=== PATIENT | male | born 1940 | race Asian ===

== ENCOUNTER 2016-11-24 12:16 | Emergency (ER) | payer MEDICARE ==
[~2016-11-24] VITALS: Ht 170.2 cm; Wt 59.1 kg
[~2016-11-24 12:16] MED LIST: BETAPACE 80MG80 MG PO; CARAFATE 1GM1 G PO; FLOMAX 0.40.4 MG/CAP PO; LEVAQUIN 5500 MG/TA1 PO; PREVACID 15MG15 M1 PO; TOPROL XL 50MG50 MG PO; ZANTAC 150150 MG PO; ZITHROMAX Z PA250 MG PO
[2016-11-24 12:17] VITALS: TEMP 97.8
[2016-11-24 13:14] LABS: BASO % 0.5 % (0.0-2.0); EOS # 0.3 (0.0-0.7); EOS % 3.9 % (0-4.0); GRAN # 6.3 (1.4-6.5); GRAN % 73.2 % (42.2-75.2); HEMATOCRIT 37.9 % (42.0-52.0); HEMOGLOBIN 12.4 g/dl (13.5-18.0); LYMPH # 1.3 (1.2-3.4); LYMPH % 15.2 % (20.0-51.0); MEAN CELL VOLUME 91 fl (80.0-100.0); MEAN CORPUSCULAR HEMOGLOBIN 30 pg (27.0-31.0); MEAN CORPUSCULAR HGB CONC 33 g/dl (33.0-37.0); MEAN PLATELET VOLUME 9.5 fl (7.4-10.4); MONO # 0.6 (0.1-0.6); MONO % 6.8 % (1.7-9.3); PLATELET COUNT 266 K/mm3 (130-400); RED BLOOD COUNT 4.17 M/mm3 (4.20-5.60); REDCELL DISTRIBUTION WIDTH-CV 12.5 % (11.5-14.5); WHITE BLOOD COUNT 8.6 K/mm3 (4.8-10.8)
[2016-11-24 13:19] LABS: ADJUSTED CALCIUM 9.3 mg/dL (8.4-10.2); BILIRUBIN,TOTAL 1.2 mg/dL (0.0-1.0); CALCIUM 9.3 mg/dL (8.4-10.2); CREATININE, serum 1.1 mg/dL (0.66-1.25); POTASSIUM 3.9 mmol/L (3.4-5.0); TOTAL PROTEIN 8.1 gm/dL (6.4-8.2)
[2016-11-24] MEDS ORDERED: AMOXICILLIN 8751 TAB PO ×2 (15:20→15:29)
[2016-11-24 15:43] VITALS: BP 119/80; PULSE 69
== END 2016-11-24 15:45 | disposition home or self-care (01) ==
LOC: COL.ER 12:16
PROVIDERS: Emergency Medicine
DX: J18.9 Pneumonia, unspecified organism (principal); I10 Essential (primary) hypertension; Z87.891 Personal history of nicotine dependence
CPT/HCPCS: Q9967

== ENCOUNTER 2016-12-06 08:30 | Emergency (ER) | payer MEDICARE ==
[~2016-12-06] VITALS: Ht 170.2 cm; Wt 56.8 kg
[~2016-12-06 08:30] MED LIST changes: +AMOXICILLIN 8751 TAB PO
[2016-12-06 08:34] VITALS: TEMP 97.6
[2016-12-06 09:15] LABS: BASO % 0.4 % (0.0-2.0); EOS # 0.3 (0.0-0.7); EOS % 2.8 % (0-4.0); GRAN # 6.7 (1.4-6.5); GRAN % 73.4 % (42.2-75.2); HEMATOCRIT 37.1 % (42.0-52.0); HEMOGLOBIN 12.1 g/dl (13.5-18.0); LYMPH # 1.6 (1.2-3.4); MEAN CELL VOLUME 91 fl (80.0-100.0); MEAN CORPUSCULAR HEMOGLOBIN 30 pg (27.0-31.0); MEAN CORPUSCULAR HGB CONC 33 g/dl (33.0-37.0); MEAN PLATELET VOLUME 9.5 fl (7.4-10.4); MONO # 0.6 (0.1-0.6); MONO % 6.2 % (1.7-9.3); PLATELET COUNT 291 K/mm3 (130-400); RED BLOOD COUNT 4.06 M/mm3 (4.20-5.60); WHITE BLOOD COUNT 9.1 K/mm3 (4.8-10.8)
[2016-12-06 09:24] LABS: INR 1.2 (0.8-3.0); PROTHROMBIN TIME 13.1 SECONDS (9.7-12.8)
[2016-12-06 09:26] LABS: PARTIAL THROMBOPLASTIN TIME 39.1 SECONDS (26.0-37.0)
[2016-12-06 09:31] LABS: INFLUENZA B NEGATIVE
[2016-12-06 09:40] LABS: ADJUSTED CALCIUM 9.2 mg/dL (8.4-10.2); ALBUMIN 3.8 gm/dL (3.5-5.0); BILIRUBIN,TOTAL 1.1 mg/dL (0.0-1.0); CREATININE, serum 1.02 mg/dL (0.66-1.25); POTASSIUM 3.8 mmol/L (3.4-5.0); TOTAL PROTEIN 7.8 gm/dL (6.4-8.2)
[2016-12-06 09:41] LABS: ERYTHROCYTE SEDIMENTATION RATE 46 mm/hr (0-30)
[2016-12-06] MEDS ORDERED: LEVAQUIN 5500 MG/TA1 PO (11:05)
[2016-12-06 11:59] VITALS: BP 121/82; PULSE 69
== END 2016-12-06 12:00 | disposition home or self-care (01) ==
LOC: COL.ER 08:30
PROVIDERS: Physician Assistant
DX: J18.9 Pneumonia, unspecified organism (principal); I10 Essential (primary) hypertension; Z87.891 Personal history of nicotine dependence; K21.9 Gastro-esophageal reflux disease without esophagitis
CPT/HCPCS: J1956; J7040; Q9967

== ENCOUNTER 2016-12-10 12:19 | Emergency (ER) | payer MEDICARE ==
[~2016-12-10] VITALS: Ht 170.2 cm; Wt 59.1 kg
[2016-12-10 12:36] VITALS: TEMP 98.8
[2016-12-10 13:24] LABS: BASO % 0.5 % (0.0-2.0); EOS # 0.2 (0.0-0.7); EOS % 2.9 % (0-4.0); GRAN # 5.5 (1.4-6.5); GRAN % 75.3 % (42.2-75.2); LYMPH % 13.5 % (20.0-51.0); MEAN CELL VOLUME 91 fl (80.0-100.0); MEAN CORPUSCULAR HEMOGLOBIN 30 pg (27.0-31.0); MEAN CORPUSCULAR HGB CONC 33 g/dl (33.0-37.0); MEAN PLATELET VOLUME 9.8 fl (7.4-10.4); MONO # 0.6 (0.1-0.6); MONO % 7.5 % (1.7-9.3); PLATELET COUNT 275 K/mm3 (130-400); RED BLOOD COUNT 3.98 M/mm3 (4.20-5.60); WHITE BLOOD COUNT 7.3 K/mm3 (4.8-10.8)
[2016-12-10 13:26] LABS: HEMATOCRIT 36.2 % (42.0-52.0)
[2016-12-10 13:33] LABS: ADJUSTED CALCIUM 9.4 mg/dL (8.4-10.2); ALANINE AMINOTRANSFERASE 26 U/L (21-72); ALBUMIN 3.6 gm/dL (3.5-5.0); ALKALINE PHOSPHATASE 109 U/L (50-136); ANION GAP 10 mmol/L (7-16); BILIRUBIN,TOTAL 0.9 mg/dL (0.0-1.0); BLOOD UREA NITROGEN 15 mg/dL (9-20); CALCIUM 9.1 mg/dL (8.4-10.2); CARBON DIOXIDE 31 mmol/L (22-30); CHLORIDE 99 mmol/L (98-107); CREATININE, serum 1.23 mg/dL (0.66-1.25); GLUCOSE 120 mg/dL (74-106); POTASSIUM 3.8 mmol/L (3.4-5.0); SODIUM 140 mmol/L (137-145); TOTAL PROTEIN 7.6 gm/dL (6.4-8.2)
[2016-12-10 13:47] LABS: TROPONIN-I < 0.012 ng/mL (0.000-0.034)
[2016-12-10] MEDS ORDERED: PREDNISONE20 MG PO (15:48)
[2016-12-10 15:54] VITALS: BP 127/82; PULSE 68
== END 2016-12-10 15:53 | disposition home or self-care (01) ==
LOC: COL.ER 12:19
PROVIDERS: Emergency Medicine
DX: J18.9 Pneumonia, unspecified organism (principal); I10 Essential (primary) hypertension; Z87.891 Personal history of nicotine dependence; K21.9 Gastro-esophageal reflux disease without esophagitis
CPT/HCPCS: J1885; J1956; J7512

== ENCOUNTER 2016-12-13 08:28 | Day surgery (SDC) | payer MEDICARE ==
[~2016-12-13] VITALS: Ht 170.2 cm; Wt 60.3 kg
[~2016-12-13 08:28] MED LIST changes: +PREDNISONE20 MG PO
[2016-12-13] MEDS ORDERED: VENTOLIN0.09 MG IH (09:22)
[2016-12-13] MEDS ORDERED: LIPITOR 40MG TA40 MG PO (09:23)
[2016-12-13] MEDS ORDERED: LIBRAX CAPSULE1 CAP PO (09:24)
[2016-12-13] MEDS ORDERED: DELSYM30 MG/5 ML PO (09:24)
[2016-12-13] MEDS ORDERED: PROBIOTIC FORMU1 CAP PO (09:25)
[2016-12-13] MEDS ORDERED: MUCINEX 60600 MG/TA1 PO (09:25)
[2016-12-13 09:27] VITALS: BP 144/74; PULSE 55; TEMP 97.2
[2016-12-13] MEDS ORDERED: BETAPACE 80MG80 MG PO (09:27)
[2016-12-13 10:45] VITALS: BP 126/73; PULSE 66; TEMP 97.1
[2016-12-13 11:00] VITALS: BP 137/67; PULSE 54
[2016-12-13 11:15] VITALS: BP 155/73; PULSE 63
[2016-12-13 11:30] VITALS: BP 133/64; PULSE 58
[2016-12-13 15:14] VITALS: BP 127/75; PULSE 67
== END 2016-12-13 12:00 | disposition home or self-care (01) ==
LOC: SDCO 08:28
DX: R06.02 Shortness of breath (principal); R07.9 Chest pain, unspecified
CPT/HCPCS: J7030

== ENCOUNTER 2016-12-16 11:44 | Emergency (ER) | payer MEDICARE ==
[~2016-12-16] VITALS: Ht 170.2 cm; Wt 59.1 kg
[~2016-12-16 11:44] MED LIST changes: +DELSYM30 MG/5 ML PO; +LIBRAX CAPSULE1 CAP PO; +LIPITOR 40MG TA40 MG PO; +MUCINEX 60600 MG/TA1 PO; +PROBIOTIC FORMU1 CAP PO; +VENTOLIN0.09 MG IH
[2016-12-16 11:54] VITALS: TEMP 97.3
[2016-12-16 12:48] LABS: BASO % 0.3 % (0.0-2.0); EOS # 0.1 (0.0-0.7); EOS % 1.4 % (0-4.0); GRAN # 5.6 (1.4-6.5); GRAN % 77.1 % (42.2-75.2); HEMATOCRIT 38.8 % (42.0-52.0); HEMOGLOBIN 12.9 g/dl (13.5-18.0); LYMPH # 1.2 (1.2-3.4); LYMPH % 16.4 % (20.0-51.0); MEAN CELL VOLUME 90 fl (80.0-100.0); MEAN CORPUSCULAR HEMOGLOBIN 30 pg (27.0-31.0); MEAN CORPUSCULAR HGB CONC 33 g/dl (33.0-37.0); MEAN PLATELET VOLUME 9.6 fl (7.4-10.4); MONO # 0.3 (0.1-0.6); MONO % 4.5 % (1.7-9.3); PLATELET COUNT 274 K/mm3 (130-400); RED BLOOD COUNT 4.31 M/mm3 (4.20-5.60); REDCELL DISTRIBUTION WIDTH-CV 13.3 % (11.5-14.5); WHITE BLOOD COUNT 7.3 K/mm3 (4.8-10.8)
[2016-12-16 12:49] LABS: ADJUSTED CALCIUM 10.1 mg/dL (8.4-10.2); ALBUMIN 3.6 gm/dL (3.5-5.0); BILIRUBIN,TOTAL 1.1 mg/dL (0.0-1.0); CALCIUM 9.8 mg/dL (8.4-10.2); CREATININE, serum 0.98 mg/dL (0.66-1.25); POTASSIUM 3.6 mmol/L (3.4-5.0); TOTAL PROTEIN 7.6 gm/dL (6.4-8.2)
[2016-12-16 13:04] LABS: PH 7 (5-8); SQUAMOUS EPITHELIAL None Seen /hpf; URINE APPEARANCE Clear; URINE BACTERIA None Seen /hpf; URINE BILIRUBIN Negative (NEGATIVE); URINE BLOOD Negative (NEGATIVE); URINE COLOR Yellow; URINE GLUCOSE Negative (NEGATIVE); URINE KETONE Trace (NEGATIVE); URINE RBC 0-2 /hpf; URINE UROBILINOGEN Negative (NEGATIVE); URINE WBC 0-2 /hpf
[2016-12-16] MEDS ORDERED: PREDNISONE10 MG PO (14:21)
[2016-12-16] MEDS ORDERED: ZOFRAN ODT4 MG PO (14:23)
[2016-12-16] MEDS ORDERED: PREVACID 30MG30 M1 PO (14:23)
[2016-12-16] MEDS ORDERED: CARAFATE 1GM1 G PO (14:23)
[2016-12-16 15:11] VITALS: BP 144/77; PULSE 65
== END 2016-12-16 14:59 | disposition home or self-care (01) ==
LOC: COL.ER 11:44
PROVIDERS: Emergency Medicine
DX: K29.70 Gastritis, unspecified, without bleeding (principal); K21.9 Gastro-esophageal reflux disease without esophagitis
CPT/HCPCS: J2405; J7030; Q9967

== ENCOUNTER 2017-01-28 21:30 | Emergency (ER) | payer MEDICARE ==
[~2017-01-28] VITALS: Ht 170.2 cm; Wt 57.7 kg
[~2017-01-28 21:30] MED LIST changes: +PREDNISONE10 MG PO; +PREVACID 30MG30 M1 PO; +ZOFRAN ODT4 MG PO
[2017-01-28 21:33] VITALS: TEMP 99.4
[2017-01-28 22:04] LABS: BASO % 0.4 % (0.0-2.0); EOS # 0.1 (0.0-0.7); EOS % 0.6 % (0-4.0); GRAN % 80.5 % (42.2-75.2); HEMATOCRIT 39.2 % (42.0-52.0); HEMOGLOBIN 12.9 g/dl (13.5-18.0); LYMPH # 1.4 (1.2-3.4); LYMPH % 12.4 % (20.0-51.0); MEAN CELL VOLUME 93 fl (80.0-100.0); MEAN CORPUSCULAR HEMOGLOBIN 31 pg (27.0-31.0); MEAN CORPUSCULAR HGB CONC 33 g/dl (33.0-37.0); MEAN PLATELET VOLUME 9.5 fl (7.4-10.4); MONO # 0.6 (0.1-0.6); MONO % 5.7 % (1.7-9.3); PLATELET COUNT 224 K/mm3 (130-400); RED BLOOD COUNT 4.23 M/mm3 (4.20-5.60); REDCELL DISTRIBUTION WIDTH-CV 13.1 % (11.5-14.5); WHITE BLOOD COUNT 11.2 K/mm3 (4.8-10.8)
[2017-01-28 22:17] LABS: ADJUSTED CALCIUM 9.4 mg/dL (8.4-10.2); ALANINE AMINOTRANSFERASE 17 U/L (21-72); ALBUMIN 3.9 gm/dL (3.5-5.0); ALKALINE PHOSPHATASE 93 U/L (50-136); ANION GAP 11 mmol/L (7-16); BLOOD UREA NITROGEN 19 mg/dL (9-20); CALCIUM 9.3 mg/dL (8.4-10.2); CARBON DIOXIDE 27 mmol/L (22-30); CHLORIDE 98 mmol/L (98-107); CREATININE, serum 1.11 mg/dL (0.66-1.25); GLUCOSE 192 mg/dL (74-106); LIPASE 196 U/L (23-300); POTASSIUM 4.3 mmol/L (3.4-5.0); SODIUM 136 mmol/L (137-145); TOTAL PROTEIN 7.1 gm/dL (6.4-8.2)
[2017-01-28 22:26] LABS: B-TYPE NATRIURETIC PEPTIDE 212 pg/mL (0-450)
[2017-01-28 22:31] LABS: TROPONIN-I < 0.012 ng/mL (0.000-0.034)
[2017-01-28 23:06] VITALS: BP 109/76; PULSE 79
== END 2017-01-28 23:37 | disposition home or self-care (01) ==
LOC: COL.ER 21:30
PROVIDERS: Emergency Medicine
DX: R07.89 Other chest pain (principal); J18.9 Pneumonia, unspecified organism; I48.91 Unspecified atrial fibrillation; K21.9 Gastro-esophageal reflux disease without esophagitis; N40.0 Benign prostatic hyperplasia without lower urinary tract symptoms
CPT/HCPCS: J7030

== ENCOUNTER 2017-09-26 07:27 | Day surgery (SDC) | payer MEDICARE ==
[~2017-09-26] VITALS: Ht 170.2 cm; Wt 57.5 kg
[2017-09-26 08:19] VITALS: BP 136/72; PULSE 59; TEMP 98.1
[2017-09-26] MEDS ORDERED: VENTOLIN0.09 MG IH (08:30)
[2017-09-26] MEDS ORDERED: LIPITOR 40MG TA40 MG PO (08:31)
[2017-09-26] MEDS ORDERED: ZITHROMAX500 M2 PO (08:31)
[2017-09-26] MEDS ORDERED: ETHAMBUTOL HYD400 MG PO (08:32)
[2017-09-26] MEDS ORDERED: ZANTAC 150MG T150 MG PO (08:33)
[2017-09-26] MEDS ORDERED: CARAFATE 1GM1 G PO (08:36)
[2017-09-26] MEDS ORDERED: RIFADIN300 MG PO (08:37)
[2017-09-26 09:35] VITALS: BP 139/75; PULSE 70; TEMP 98.1
[2017-09-26 09:50] VITALS: BP 143/69; PULSE 56
[2017-09-26 10:05] VITALS: BP 156/72; PULSE 62
== END 2017-09-26 10:48 | disposition home or self-care (01) ==
LOC: SDCO 07:27
DX: A31.0 Pulmonary mycobacterial infection (principal); K21.9 Gastro-esophageal reflux disease without esophagitis; Z87.891 Personal history of nicotine dependence; I10 Essential (primary) hypertension; I48.91 Unspecified atrial fibrillation
CPT/HCPCS: J2704; J7120

== ENCOUNTER 2018-11-01 13:27 | Emergency (ER) | payer MEDICARE ==
[~2018-11-01] VITALS: Ht 170.2 cm; Wt 58.6 kg
[~2018-11-01 13:27] MED LIST changes: +ETHAMBUTOL HYD400 MG PO; +RIFADIN300 MG PO; +ZANTAC 150MG T150 MG PO; +ZITHROMAX500 M2 PO
[2018-11-01 13:34] VITALS: TEMP 98.5
[2018-11-01 15:37] LABS: BASO % 0.4 % (0.0-2.0); EOS # 0.4 (0.0-0.7); GRAN # 3.8 (1.4-6.5); GRAN % 68.7 % (42.2-75.2); HEMOGLOBIN 11.8 g/dl (13.5-18.0); LYMPH # 0.9 (1.2-3.4); LYMPH % 15.3 % (20.0-51.0); MEAN CELL VOLUME 92 fl (80.0-100.0); MEAN CORPUSCULAR HEMOGLOBIN 31 pg (27.0-31.0); MEAN CORPUSCULAR HGB CONC 33 g/dl (33.0-37.0); MEAN PLATELET VOLUME 9.2 fl (7.4-10.4); MONO # 0.5 (0.1-0.6); MONO % 8.4 % (1.7-9.3); PLATELET COUNT 191 K/mm3 (130-400); RED BLOOD COUNT 3.85 M/mm3 (4.20-5.60); REDCELL DISTRIBUTION WIDTH-CV 12.3 % (11.5-14.5)
[2018-11-01 15:38] LABS: HEMATOCRIT 35.3 % (42.0-52.0)
[2018-11-01 15:59] LABS: ALANINE AMINOTRANSFERASE 14 U/L (21-72); ALBUMIN 3.7 gm/dL (3.5-5.0); ALKALINE PHOSPHATASE 75 U/L (50-136); ANION GAP 6 mmol/L (7-16); AST,SGOT 20 U/L (15-37); BILIRUBIN,TOTAL 0.5 mg/dL (0.0-1.0); BLOOD UREA NITROGEN 18 mg/dL (9-20); C-REACTIVE PROTEIN 1.7 mg/dL (0.0-0.9); CALCIUM 8.7 mg/dL (8.4-10.2); CARBON DIOXIDE 31 mmol/L (22-30); CHLORIDE 101 mmol/L (98-107); CREATININE, serum 0.92 mg/dL (0.66-1.25); GLUCOSE 113 mg/dL (74-106); POTASSIUM 3.8 mmol/L (3.4-5.0); SODIUM 138 mmol/L (137-145); TOTAL PROTEIN 7.1 gm/dL (6.4-8.2)
[2018-11-01 16:09] LABS: TROPONIN-I < 0.012 ng/mL (0.000-0.034)
[2018-11-01] MEDS ORDERED: PREDNISONE20 MG PO (16:39)
[2018-11-01] MEDS ORDERED: LEVAQUIN 5500 MG/TA1 PO (16:39)
[2018-11-01 16:52] VITALS: BP 132/87; PULSE 90
[2018-11-01] MEDS ORDERED: DOXYCYCLINE 10100 MG PO (17:11)
== END 2018-11-01 17:21 | disposition home or self-care (01) ==
LOC: COL.ER 13:27
PROVIDERS: Emergency Medicine
DX: J20.9 Acute bronchitis, unspecified (principal); R04.2 Hemoptysis; E78.00 Pure hypercholesterolemia, unspecified
CPT/HCPCS: J7512

== ENCOUNTER 2019-04-24 16:47 | Emergency (ER) | payer MEDICARE ==
[~2019-04-24] VITALS: Ht 170.2 cm; Wt 63.2 kg
[~2019-04-24 16:47] MED LIST changes: +DOXYCYCLINE 10100 MG PO
[2019-04-24 16:50] VITALS: TEMP 98
[2019-04-24 17:16] LABS: BASO % 0.5 % (0.0-2.0); EOS # 0.1 (0.0-0.7); GRAN # 4.4 (1.4-6.5); GRAN % 71.4 % (42.2-75.2); HEMATOCRIT 37.8 % (42.0-52.0); HEMOGLOBIN 12.3 g/dl (13.5-18.0); LYMPH # 1.1 (1.2-3.4); LYMPH % 18.4 % (20.0-51.0); MEAN CELL VOLUME 91 fl (80.0-100.0); MEAN CORPUSCULAR HEMOGLOBIN 30 pg (27.0-31.0); MEAN CORPUSCULAR HGB CONC 33 g/dl (33.0-37.0); MEAN PLATELET VOLUME 9.4 fl (7.4-10.4); MONO # 0.5 (0.1-0.6); MONO % 7.4 % (1.7-9.3); PLATELET COUNT 223 K/mm3 (130-400); RED BLOOD COUNT 4.14 M/mm3 (4.20-5.60); REDCELL DISTRIBUTION WIDTH-CV 12.3 % (11.5-14.5)
[2019-04-24 17:24] LABS: INR 1.1 (0.8-3.0); PARTIAL THROMBOPLASTIN TIME 36.8 SECONDS (26.0-37.0); PROTHROMBIN TIME 12.5 SECONDS (9.7-12.8)
[2019-04-24 17:34] LABS: ALANINE AMINOTRANSFERASE < 6 U/L (21-72); ALBUMIN 3.8 gm/dL (3.5-5.0); ALKALINE PHOSPHATASE 90 U/L (50-136); ANION GAP 12 mmol/L (7-16); AST,SGOT 17 U/L (15-37); BILIRUBIN,TOTAL 0.6 mg/dL (0.0-1.0); BLOOD UREA NITROGEN 16 mg/dL (9-20); CALCIUM 8.7 mg/dL (8.4-10.2); CARBON DIOXIDE 25 mmol/L (22-30); CHLORIDE 103 mmol/L (98-107); CREATININE, serum 0.92 (0.66-1.25); GLUCOSE 137 mg/dL (74-106); SODIUM 141 mmol/L (137-145); TOTAL PROTEIN 7.6 gm/dL (6.4-8.2)
[2019-04-24] MEDS ORDERED: PRILOSEC 20MG20 MG PO (17:47)
[2019-04-24 17:48] LABS: TROPONIN-I < 0.012 ng/mL (0.000-0.035)
[2019-04-24] MEDS ORDERED: AMOXICILLIN 8751 TAB PO ×2 (19:20→20:35)
[2019-04-24 20:28] LABS: TROPONIN-I < 0.012 ng/mL (0.000-0.035)
[2019-04-24 20:30] VITALS: BP 150/86; PULSE 63
== END 2019-04-24 20:30 | disposition home or self-care (01) ==
LOC: COL.ER 16:47
PROVIDERS: Family Medicine
DX: J20.9 Acute bronchitis, unspecified (principal)
CPT/HCPCS: A4216; J0696

== ENCOUNTER 2019-05-11 12:20 | Emergency (ER) | payer MEDICARE ==
[~2019-05-11] VITALS: Ht 170.2 cm; Wt 56.8 kg
[~2019-05-11 12:20] MED LIST changes: +PRILOSEC 20MG20 MG PO
[2019-05-11 12:39] LABS: BASO % 0.8 % (0.0-2.0); EOS # 0.1 (0.0-0.7); EOS % 2.5 % (0-4.0); GRAN # 3.6 (1.4-6.5); HEMATOCRIT 39.6 % (42.0-52.0); HEMOGLOBIN 12.7 g/dl (13.5-18.0); LYMPH % 19.7 % (20.0-51.0); MEAN CELL VOLUME 92 fl (80.0-100.0); MEAN CORPUSCULAR HEMOGLOBIN 29 pg (27.0-31.0); MEAN CORPUSCULAR HGB CONC 32 g/dl (33.0-37.0); MEAN PLATELET VOLUME 8.9 fl (7.4-10.4); MONO # 0.4 (0.1-0.6); MONO % 7.8 % (1.7-9.3); PLATELET COUNT 216 K/mm3 (130-400); RED BLOOD COUNT 4.32 M/mm3 (4.20-5.60); REDCELL DISTRIBUTION WIDTH-CV 12.2 % (11.5-14.5)
[2019-05-11 12:46] LABS: PROTHROMBIN TIME 12.1 SECONDS (9.7-12.8)
[2019-05-11 12:48] LABS: PARTIAL THROMBOPLASTIN TIME 37.1 SECONDS (26.0-37.0)
[2019-05-11 12:51] LABS: ALANINE AMINOTRANSFERASE < 6 U/L (21-72); ALBUMIN 3.8 gm/dL (3.5-5.0); ALKALINE PHOSPHATASE 95 U/L (50-136); ANION GAP 9 mmol/L (7-16); AST,SGOT 19 U/L (15-37); BILIRUBIN,TOTAL 0.5 mg/dL (0.0-1.0); BLOOD UREA NITROGEN 19 mg/dL (9-20); CALCIUM 8.8 mg/dL (8.4-10.2); CARBON DIOXIDE 27 mmol/L (22-30); CHLORIDE 103 mmol/L (98-107); CREATININE, serum 0.89 (0.66-1.25); GLUCOSE 110 mg/dL (74-106); SODIUM 139 mmol/L (137-145); TOTAL PROTEIN 7.7 gm/dL (6.4-8.2)
[2019-05-11 13:45] LABS: TROPONIN-I < 0.012 ng/mL (0.000-0.035)
[2019-05-11] MEDS ORDERED: PREDNISONE20 MG PO (14:06)
[2019-05-11] MEDS ORDERED: CEFTIN500 MG PO (14:06)
[2019-05-11 14:45] VITALS: BP 123/68; PULSE 54; TEMP 97.5
== END 2019-05-11 14:45 | disposition home or self-care (01) ==
LOC: COL.ER 12:20
PROVIDERS: Family Medicine
DX: J20.9 Acute bronchitis, unspecified (principal)

== ENCOUNTER 2019-07-04 23:08 | Emergency (ER) | payer MEDICARE ==
[~2019-07-04] VITALS: Ht 170.2 cm; Wt 55.9 kg
[~2019-07-04 23:08] MED LIST changes: +CEFTIN500 MG PO
[2019-07-04 23:12] VITALS: BP 139/70; TEMP 98.3
[2019-07-04 23:41] LABS: BASO % 0.5 % (0.0-2.0); EOS # 0.3 (0.0-0.7); EOS % 4.5 % (0-4.0); GRAN # 4.4 (1.4-6.5); GRAN % 70.6 % (42.2-75.2); MEAN CELL VOLUME 91 fl (80.0-100.0); MEAN CORPUSCULAR HEMOGLOBIN 29 pg (27.0-31.0); MEAN CORPUSCULAR HGB CONC 32 g/dl (33.0-37.0); MEAN PLATELET VOLUME 9.3 fl (7.4-10.4); MONO # 0.5 (0.1-0.6); MONO % 8.2 % (1.7-9.3); PLATELET COUNT 183 K/mm3 (130-400); RED BLOOD COUNT 3.74 M/mm3 (4.20-5.60); REDCELL DISTRIBUTION WIDTH-CV 13.1 % (11.5-14.5)
[2019-07-04 23:42] LABS: HEMATOCRIT 33.9 % (42.0-52.0)
[2019-07-05 00:10] LABS: ALBUMIN 3.7 gm/dL (3.5-5.0); BILIRUBIN,TOTAL 0.4 mg/dL (0.0-1.0); C-REACTIVE PROTEIN 1.2 mg/dL (0.0-0.9); CALCIUM 8.7 mg/dL (8.4-10.2); CREATININE, serum 0.89 (0.66-1.25); POTASSIUM 4.1 mmol/L (3.4-5.0); TOTAL PROTEIN 7.2 gm/dL (6.4-8.2)
[2019-07-05 02:25] VITALS: PULSE 81
== END 2019-07-05 02:25 | disposition home or self-care (01) ==
LOC: COL.ER 23:08
PROVIDERS: Emergency Medicine
DX: R04.2 Hemoptysis (principal); Z87.891 Personal history of nicotine dependence
CPT/HCPCS: J0692; J1644; J7040; Q9967

== ENCOUNTER 2020-03-14 12:41 | Emergency (ER) | payer MEDICARE ==
[~2020-03-14] VITALS: Ht 170.2 cm; Wt 54.5 kg
[2020-03-14 12:46] VITALS: TEMP 98.2
[2020-03-14] MEDS ORDERED: ZITHROMAX500 M2 PO (12:55)
[2020-03-14] MEDS ORDERED: RIFADIN300 MG (12:56)
[2020-03-14] MEDS ORDERED: ETHAMBUTOL HYD400 MG PO (12:56)
[2020-03-14 13:46] LABS: BASO % 0.6 % (0.0-2.0); EOS # 0.2 (0.0-0.7); EOS % 4.1 % (0-4.0); GRAN # 3.8 (1.4-6.5); GRAN % 71.9 % (42.2-75.2); HEMATOCRIT 38.2 % (42.0-52.0); HEMOGLOBIN 12.4 g/dl (13.5-18.0); LYMPH # 0.8 (1.2-3.4); LYMPH % 15.7 % (20.0-51.0); MEAN CELL VOLUME 93 fl (80.0-100.0); MEAN CORPUSCULAR HEMOGLOBIN 30 pg (27.0-31.0); MEAN CORPUSCULAR HGB CONC 33 g/dl (33.0-37.0); MEAN PLATELET VOLUME 8.9 fl (7.4-10.4); MONO # 0.4 (0.1-0.6); MONO % 7.3 % (1.7-9.3); PLATELET COUNT 179 K/mm3 (130-400); REDCELL DISTRIBUTION WIDTH-CV 12.5 % (11.5-14.5)
[2020-03-14 13:57] LABS: ALANINE AMINOTRANSFERASE 12 U/L (4-49); ALBUMIN 3.7 gm/dL (3.5-5.0); ALKALINE PHOSPHATASE 102 U/L (50-136); ANION GAP 7 mmol/L (7-16); AST,SGOT 22 U/L (15-37); BILIRUBIN,TOTAL 0.5 mg/dL (0.0-1.0); BLOOD UREA NITROGEN 24 mg/dL (9-20); CALCIUM 8.6 mg/dL (8.4-10.2); CARBON DIOXIDE 27 mmol/L (22-30); CHLORIDE 104 mmol/L (98-107); CREATININE, serum 1.13 (0.66-1.25); GLUCOSE 112 mg/dL (74-106); POTASSIUM 4.1 mmol/L (3.4-5.0); SODIUM 138 mmol/L (137-145); TOTAL PROTEIN 7.6 gm/dL (6.4-8.2)
[2020-03-14 14:07] LABS: INR 1.1 (0.8-3.0); PROTHROMBIN TIME 12.2 SECONDS (9.7-12.8)
[2020-03-14 14:08] LABS: TROPONIN-I < 0.012 ng/mL (0.000-0.035)
[2020-03-14 15:24] VITALS: BP 173/99; PULSE 71
== END 2020-03-14 15:23 | disposition home or self-care (01) ==
LOC: COL.ER 12:41
PROVIDERS: Emergency Medicine
DX: R04.2 Hemoptysis (principal)
CPT/HCPCS: J7040; Q9967

== ENCOUNTER 2021-04-20 13:27 | Emergency (ER) | payer MEDICARE ==
[~2021-04-20] VITALS: Ht 170.2 cm; Wt 55.0 kg
[~2021-04-20 13:27] MED LIST changes: +RIFADIN300 MG
[2021-04-20 14:56] LABS: ALANINE AMINOTRANSFERASE 11 U/L (4-49); ALBUMIN 4.1 gm/dL (3.5-5.0); ALKALINE PHOSPHATASE 99 U/L (50-136); ANION GAP 5 mmol/L (7-16); AST,SGOT 26 U/L (15-37); BILIRUBIN,TOTAL 0.8 mg/dL (0.0-1.0); BLOOD UREA NITROGEN 16 mg/dL (9-20); CALCIUM 8.7 mg/dL (8.4-10.2); CARBON DIOXIDE 28 mmol/L (22-30); CHLORIDE 97 mmol/L (98-107); CREATININE, serum 0.99 (0.66-1.25); GLUCOSE 122 mg/dL (74-106); POTASSIUM 4.3 mmol/L (3.4-5.0); SODIUM 130 mmol/L (137-145); TOTAL PROTEIN 8.4 gm/dL (6.4-8.2)
[2021-04-20 14:59] LABS: BASO % 0.2 % (0.0-2.0); EOS # 0.1 (0.0-0.7); EOS % 1.1 % (0-4.0); GRAN # 6.4 (1.4-6.5); GRAN % 76.3 % (42.2-75.2); HEMATOCRIT 41.2 % (42.0-52.0); HEMOGLOBIN 13.6 g/dl (13.5-18.0); LYMPH # 1.3 (1.2-3.4); LYMPH % 15.8 % (20.0-51.0); MEAN CELL VOLUME 93 fl (80.0-100.0); MEAN CORPUSCULAR HEMOGLOBIN 31 pg (27.0-31.0); MEAN CORPUSCULAR HGB CONC 33 g/dl (33.0-37.0); MEAN PLATELET VOLUME 9.4 fl (7.4-10.4); MONO # 0.5 (0.1-0.6); MONO % 6.2 % (1.7-9.3); PLATELET COUNT 204 K/mm3 (130-400); RED BLOOD COUNT 4.44 M/mm3 (4.20-5.60); REDCELL DISTRIBUTION WIDTH-CV 12.3 % (11.5-14.5)
[2021-04-20 15:09] LABS: TROPONIN-I < 0.012 ng/mL (0.000-0.035)
[2021-04-20] MEDS ORDERED: DOXYCYCLINE 10100 MG PO (15:36)
[2021-04-20] MEDS ORDERED: CEFTIN500 MG PO (15:36)
[2021-04-20] MEDS ORDERED: PREDNISONE50 MG PO (15:36)
[2021-04-20 16:19] VITALS: BP 162/73; PULSE 71; TEMP 99.1
== END 2021-04-20 16:21 | disposition home or self-care (01) ==
LOC: COL.ER 13:27
PROVIDERS: Emergency Medicine
DX: J18.9 Pneumonia, unspecified organism (principal); Z86.19 Personal history of other infectious and parasitic diseases; Z88.1 Allergy status to other antibiotic agents; Z20.822 Contact with and (suspected) exposure to COVID-19
CPT/HCPCS: Q9967

== ENCOUNTER 2021-04-25 14:07 | Emergency (ER) | payer MEDICARE ==
[~2021-04-25] VITALS: Ht 170.2 cm; Wt 55.0 kg
[~2021-04-25 14:07] MED LIST changes: +PREDNISONE50 MG PO
[2021-04-25 16:52] LABS: BASO % 0.4 % (0.0-2.0); EOS # 0.2 (0.0-0.7); EOS % 1.7 % (0-4.0); GRAN # 8.8 (1.4-6.5); GRAN % 81.1 % (42.2-75.2); HEMOGLOBIN 13.5 g/dl (13.5-18.0); LYMPH # 1.1 (1.2-3.4); LYMPH % 9.9 % (20.0-51.0); MEAN CELL VOLUME 91 fl (80.0-100.0); MEAN CORPUSCULAR HEMOGLOBIN 31 pg (27.0-31.0); MEAN CORPUSCULAR HGB CONC 34 g/dl (33.0-37.0); MEAN PLATELET VOLUME 9.2 fl (7.4-10.4); MONO # 0.7 (0.1-0.6); MONO % 6.5 % (1.7-9.3); PLATELET COUNT 261 K/mm3 (130-400)
[2021-04-25 17:46] LABS: ALBUMIN 3.8 gm/dL (3.5-5.0); BILIRUBIN,TOTAL 0.6 mg/dL (0.0-1.0); CALCIUM 8.7 mg/dL (8.4-10.2); CREATININE, serum 0.74 (0.66-1.25); TOTAL PROTEIN 8.1 gm/dL (6.4-8.2)
[2021-04-25] MEDS ORDERED: CHERATUSSIN AC120 ML PO (17:56)
[2021-04-25] MEDS ORDERED: VANTIN 200200 MG/TAB PO (17:56)
[2021-04-25 18:36] VITALS: BP 158/64; PULSE 78; TEMP 98.2
== END 2021-04-25 18:38 | disposition home or self-care (01) ==
LOC: COL.ER 14:07
PROVIDERS: Family Medicine
DX: J42 Unspecified chronic bronchitis (principal); Z86.19 Personal history of other infectious and parasitic diseases; Z79.52 Long term (current) use of systemic steroids; Z88.1 Allergy status to other antibiotic agents
CPT/HCPCS: J2930

== ENCOUNTER 2021-10-08 18:00 | Emergency (ER) | payer MEDICARE ==
[~2021-10-08] VITALS: Ht 170.2 cm; Wt 54.5 kg
[~2021-10-08 18:00] MED LIST changes: +CHERATUSSIN AC120 ML PO; +VANTIN 200200 MG/TAB PO
[2021-10-08 18:18] VITALS: TEMP 97.8
[2021-10-08 18:44] LABS: BASO # 0.1 K/mm3 (0.0-0.2); BASO % 0.9 % (0.0-2.0); EOS # 0.3 K/mm3 (0.0-0.7); EOS % 5.7 % (0.0-4.0); GRAN # 3.7 K/mm3 (1.4-6.5); GRAN % 70.1 % (42.2-75.2); HEMOGLOBIN 11.1 g/dl (13.5-18.0); LYMPH # 0.8 K/mm3 (1.2-3.4); LYMPH % 15.5 % (20.0-51.0); MEAN CELL VOLUME 87 fl (80.0-100.0); MEAN CORPUSCULAR HEMOGLOBIN 29 pg (27-31); MEAN CORPUSCULAR HGB CONC 33 g/dl (33.0-37.0); MEAN PLATELET VOLUME 8.8 fl (7.4-10.4); MONO # 0.4 K/mm3 (0.1-0.6); MONO % 7.4 % (1.7-9.3); PLATELET COUNT 248 K/mm3 (130-400); RED BLOOD COUNT 3.89 M/mm3 (4.20-5.60); REDCELL DISTRIBUTION WIDTH-CV 13.8 % (11.5-14.5)
[2021-10-08 19:01] LABS: ALANINE AMINOTRANSFERASE 8 U/L (0-55); ALKALINE PHOSPHATASE 74 U/L (40-150); ANION GAP 8 mmol/L (7-16); AST,SGOT 12 U/L (5-34); BILIRUBIN,TOTAL 0.4 mg/dL (0.2-1.2); BLOOD UREA NITROGEN 16 mg/dL (8-26); CALCIUM 8.3 mg/dL (8.4-10.2); CARBON DIOXIDE 25 mmol/L (23-31); CHLORIDE 104 mmol/L (98-107); CREATININE, serum 1.07 mg/dL (0.72-1.25); GLUCOSE 112 mg/dL (70-99); POTASSIUM 4.2 mmol/L (3.5-4.5); SODIUM 137 mmol/L (136-145); TOTAL PROTEIN 7.2 gm/dL (6.2-8.1)
[2021-10-08 19:08] LABS: TROPONIN-I < 0.010 ng/mL (0.00-0.033)
[2021-10-08 21:18] VITALS: BP 170/89; PULSE 68
== END 2021-10-08 21:18 | disposition home or self-care (01) ==
LOC: COL.ER 18:00
PROVIDERS: Student in an Organized Health Care Education/Training Program
DX: R53.81 Other malaise (principal); I10 Essential (primary) hypertension; Z20.822 Contact with and (suspected) exposure to COVID-19; Z79.899 Other long term (current) drug therapy

== ENCOUNTER 2021-10-15 15:11 | Emergency (ER) | payer MEDICARE ==
[~2021-10-15] VITALS: Ht 170.2 cm; Wt 54.5 kg
[2021-10-15 15:45] VITALS: TEMP 98
[2021-10-15 16:27] LABS: BASO % 0.5 % (0.0-2.0); EOS # 0.2 K/mm3 (0.0-0.7); EOS % 2.7 % (0.0-4.0); GRAN # 5.4 K/mm3 (1.4-6.5); GRAN % 74.5 % (42.2-75.2); HEMOGLOBIN 11.6 g/dl (13.5-18.0); LYMPH # 1.2 K/mm3 (1.2-3.4); LYMPH % 15.7 % (20.0-51.0); MEAN CELL VOLUME 89 fl (80.0-100.0); MEAN CORPUSCULAR HEMOGLOBIN 29 pg (27-31); MEAN CORPUSCULAR HGB CONC 32 g/dl (33.0-37.0); MONO # 0.5 K/mm3 (0.1-0.6); MONO % 6.2 % (1.7-9.3); PLATELET COUNT 267 K/mm3 (130-400); RED BLOOD COUNT 4.07 M/mm3 (4.20-5.60)
[2021-10-15 16:28] LABS: HEMATOCRIT 36.3 % (42.0-52.0)
[2021-10-15 16:48] LABS: ALANINE AMINOTRANSFERASE 9 U/L (0-55); ALBUMIN 3.2 gm/dL (3.4-4.8); ALKALINE PHOSPHATASE 81 U/L (40-150); ANION GAP 12 mmol/L (7-16); AST,SGOT 15 U/L (5-34); BLOOD UREA NITROGEN 13 mg/dL (8-26); CALCIUM 8.4 mg/dL (8.4-10.2); CARBON DIOXIDE 22 mmol/L (23-31); CHLORIDE 105 mmol/L (98-107); CREATININE, serum 0.88 mg/dL (0.72-1.25); GLUCOSE 113 mg/dL (70-99); POTASSIUM 3.6 mmol/L (3.5-4.5); SODIUM 139 mmol/L (136-145); TOTAL PROTEIN 7.4 gm/dL (6.2-8.1)
[2021-10-15 17:05] LABS: TROPONIN-I < 0.010 ng/mL (0.00-0.033)
[2021-10-15 17:33] LABS: BILIRUBIN,TOTAL 0.6 mg/dL (0.2-1.2)
[2021-10-15 17:45] VITALS: BP 175/91; PULSE 64
== END 2021-10-15 17:56 | disposition home or self-care (01) ==
LOC: COL.ER 15:11
PROVIDERS: Physician Assistant
DX: R05.9 Cough, unspecified (principal); Z20.822 Contact with and (suspected) exposure to COVID-19; Z87.01 Personal history of pneumonia (recurrent); Z88.1 Allergy status to other antibiotic agents

== ENCOUNTER 2021-11-04 13:30 | Emergency (ER) | payer MEDICARE ==
[~2021-11-04] VITALS: Ht 170.2 cm; Wt 55.9 kg
[2021-11-04 13:51] VITALS: TEMP 97.6
[2021-11-04 14:20] LABS: BASO # 0.1 K/mm3 (0.0-0.2); BASO % 0.8 % (0.0-2.0); EOS # 0.2 K/mm3 (0.0-0.7); EOS % 2.7 % (0.0-4.0); GRAN # 4.6 K/mm3 (1.4-6.5); GRAN % 70.4 % (42.2-75.2); HEMOGLOBIN 11.2 g/dl (13.5-18.0); LYMPH # 1.2 K/mm3 (1.2-3.4); LYMPH % 18.4 % (20.0-51.0); MEAN CELL VOLUME 90 fl (80.0-100.0); MEAN CORPUSCULAR HEMOGLOBIN 29 pg (27-31); MEAN CORPUSCULAR HGB CONC 32 g/dl (33.0-37.0); MEAN PLATELET VOLUME 9.2 fl (7.4-10.4); MONO # 0.5 K/mm3 (0.1-0.6); MONO % 7.5 % (1.7-9.3); PLATELET COUNT 239 K/mm3 (130-400); RED BLOOD COUNT 3.88 M/mm3 (4.20-5.60); REDCELL DISTRIBUTION WIDTH-CV 14.6 % (11.5-14.5)
[2021-11-04 14:24] LABS: HEMATOCRIT 34.8 % (42.0-52.0)
[2021-11-04 14:37] LABS: ALANINE AMINOTRANSFERASE 9 U/L (0-55); ALBUMIN 3.1 gm/dL (3.4-4.8); ALKALINE PHOSPHATASE 86 U/L (40-150); ANION GAP 9 mmol/L (7-16); AST,SGOT 15 U/L (5-34); BILIRUBIN,TOTAL 0.5 mg/dL (0.2-1.2); BLOOD UREA NITROGEN 17 mg/dL (8-26); CALCIUM 8.4 mg/dL (8.4-10.2); CARBON DIOXIDE 23 mmol/L (23-31); CHLORIDE 104 mmol/L (98-107); CREATININE, serum 0.98 mg/dL (0.72-1.25); GLUCOSE 116 mg/dL (70-99); SODIUM 136 mmol/L (136-145); TOTAL PROTEIN 7.2 gm/dL (6.2-8.1)
[2021-11-04 14:45] LABS: TROPONIN-I < 0.010 ng/mL (0.00-0.033)
[2021-11-04] MEDS ORDERED: DOXYCYCLINE 10100 MG PO (16:18)
[2021-11-04 16:49] VITALS: BP 185/94; PULSE 61
== END 2021-11-04 16:56 | disposition home or self-care (01) ==
LOC: COL.ER 13:30
PROVIDERS: Emergency Medicine
DX: R07.89 Other chest pain (principal); Z88.1 Allergy status to other antibiotic agents; Z20.822 Contact with and (suspected) exposure to COVID-19
CPT/HCPCS: Q9967

== ENCOUNTER 2021-11-28 03:21 | Emergency (ER) | payer MEDICARE ==
[~2021-11-28] VITALS: Ht 170.2 cm; Wt 55.9 kg
[2021-11-28 03:28] VITALS: TEMP 97.6
[2021-11-28 03:45] LABS: BASO # 0.1 K/mm3 (0.0-0.2); BASO % 0.6 % (0.0-2.0); EOS # 0.2 K/mm3 (0.0-0.7); EOS % 1.9 % (0.0-4.0); GRAN # 6.2 K/mm3 (1.4-6.5); GRAN % 77.4 % (42.2-75.2); HEMATOCRIT 40.6 % (42.0-52.0); LYMPH # 1.1 K/mm3 (1.2-3.4); LYMPH % 13.6 % (20.0-51.0); MEAN CELL VOLUME 91 fl (80.0-100.0); MEAN CORPUSCULAR HEMOGLOBIN 29 pg (27-31); MEAN CORPUSCULAR HGB CONC 32 g/dl (33.0-37.0); MEAN PLATELET VOLUME 9.1 fl (7.4-10.4); MONO # 0.5 K/mm3 (0.1-0.6); MONO % 6.1 % (1.7-9.3); PLATELET COUNT 234 K/mm3 (130-400); RED BLOOD COUNT 4.46 M/mm3 (4.20-5.60); REDCELL DISTRIBUTION WIDTH-CV 13.3 % (11.5-14.5)
[2021-11-28] MEDS ORDERED: DOXYCYCLINE 10100 MG PO ×2 (04:22)
[2021-11-28 04:25] LABS: ALANINE AMINOTRANSFERASE 10 U/L (0-55); ALBUMIN 3.6 gm/dL (3.4-4.8); ALKALINE PHOSPHATASE 101 U/L (40-150); ANION GAP 9 mmol/L (7-16); AST,SGOT 17 U/L (5-34); BILIRUBIN,TOTAL 0.5 mg/dL (0.2-1.2); BLOOD UREA NITROGEN 19 mg/dL (8-26); CARBON DIOXIDE 27 mmol/L (23-31); CHLORIDE 101 mmol/L (98-107); CREATININE, serum 1.02 mg/dL (0.72-1.25); GLUCOSE 102 mg/dL (70-99); POTASSIUM 3.7 mmol/L (3.5-4.5); SODIUM 137 mmol/L (136-145); TOTAL PROTEIN 8.2 gm/dL (6.2-8.1)
[2021-11-28 04:34] LABS: TROPONIN-I < 0.010 ng/mL (0.00-0.033)
[2021-11-28] MEDS ORDERED: LIDODERM 5% PATC1 EA TP (04:48)
[2021-11-28] MEDS ORDERED: AMOXICILLIN 8751 TAB PO (05:04)
[2021-11-28 05:13] VITALS: BP 158/73; PULSE 65
== END 2021-11-28 05:13 | disposition home or self-care (01) ==
LOC: COL.ER 03:21
PROVIDERS: Emergency Medicine
DX: J18.9 Pneumonia, unspecified organism (principal); J47.9 Bronchiectasis, uncomplicated; Z88.1 Allergy status to other antibiotic agents; Z20.822 Contact with and (suspected) exposure to COVID-19; Z79.899 Other long term (current) drug therapy

== ENCOUNTER → 2022-01-25 | Outpatient (CLI) | payer MEDICARE ==
[~2022-01-25] MED LIST changes: +LIDODERM 5% PATC1 EA TP
== END ==
LOC: COL.RAD 10:18
DX: J47.1 Bronchiectasis with (acute) exacerbation (principal); J90 Pleural effusion, not elsewhere classified; R91.8 Other nonspecific abnormal finding of lung field

== ENCOUNTER 2022-06-14 13:40 | Emergency (ER) | payer MEDICARE ==
[~2022-06-14] VITALS: Ht 170.2 cm; Wt 56.4 kg
[2022-06-14 13:53] VITALS: TEMP 97.9
[2022-06-14 15:06] LABS: BASO % 0.5 % (0.0-2.0); EOS # 0.2 K/mm3 (0.0-0.7); EOS % 2.7 % (0.0-4.0); GRAN # 4.4 K/mm3 (1.4-6.5); GRAN % 79.1 % (42.2-75.2); HEMATOCRIT 40.3 % (42.0-52.0); HEMOGLOBIN 12.9 g/dl (13.5-18.0); LYMPH # 0.5 K/mm3 (1.2-3.4); LYMPH % 9.2 % (20.0-51.0); MEAN CELL VOLUME 89 fl (80.0-100.0); MEAN CORPUSCULAR HEMOGLOBIN 29 pg (27-31); MEAN CORPUSCULAR HGB CONC 32 g/dl (33.0-37.0); MEAN PLATELET VOLUME 10.2 fl (7.4-10.4); MONO # 0.5 K/mm3 (0.1-0.6); MONO % 8.3 % (1.7-9.3); PLATELET COUNT 194 K/mm3 (130-400); RED BLOOD COUNT 4.52 M/mm3 (4.20-5.60); REDCELL DISTRIBUTION WIDTH-CV 13.7 % (11.5-14.5)
[2022-06-14 15:15] LABS: ALBUMIN 3.6 gm/dL (3.4-4.8); BILIRUBIN,TOTAL 0.7 mg/dL (0.2-1.2); CALCIUM 8.9 mg/dL (8.4-10.2); CREATININE, serum 0.98 mg/dL (0.72-1.25); POTASSIUM 4.3 mmol/L (3.5-4.5)
[2022-06-14 15:22] LABS: TROPONIN-I 0.01 ng/mL (0.00-0.033)
[2022-06-14] MEDS ORDERED: AMOXICILLIN 8751 TAB PO (16:46)
[2022-06-14 18:41] VITALS: BP 202/107; PULSE 98
[2022-06-15] MEDS ORDERED: PAXLOVID 150-11 EACH PO (11:01)
== END 2022-06-14 18:41 | disposition home or self-care (01) ==
LOC: COL.ER 13:40
PROVIDERS: Emergency Medicine
DX: U07.1 COVID-19 (principal); J12.82 Pneumonia due to coronavirus disease 2019; J47.9 Bronchiectasis, uncomplicated; Z88.1 Allergy status to other antibiotic agents
CPT/HCPCS: J0696; J7030; Q0222

== ENCOUNTER 2022-11-28 04:25 | Emergency (ER) | payer MEDICARE ==
[~2022-11-28 04:25] MED LIST changes: +PAXLOVID 150-11 EACH PO
[2022-11-28 04:34] VITALS: TEMP 97.5
[2022-11-28 04:55] LABS: COLLECTION METHOD CLEAN CATCH
[2022-11-28 05:00] LABS: PH 7.5 (5.0-8.5); URINE APPEARANCE Clear (CLEAR/HAZY); URINE COLOR Yellow (YELLOW)
[2022-11-28 05:01] LABS: URINE BLOOD Negative (NEGATIVE); URINE GLUCOSE Negative (NEGATIVE); URINE KETONE Negative (NEGATIVE); URINE NITRATE Negative (NEGATIVE); URINE PROTEIN(semi-quant) Negative (NEGATIVE); URINE UROBILINOGEN 0.2 E.U/dL (0.2-1.0)
[2022-11-28 05:02] LABS: SQUAMOUS EPITHELIAL 0-2 /hpf (0-10); URINE BACTERIA None Seen /hpf (NONE SEEN); URINE RBC 0-2 /hpf (0-2)
[2022-11-28 05:45] LABS: CREATININE, serum 0.79 mg/dL (0.72-1.25); POTASSIUM 4.1 mmol/L (3.5-4.5)
[2022-11-28 06:31] VITALS: BP 144/84; PULSE 62
== END 2022-11-28 06:31 | disposition home or self-care (01) ==
LOC: COL.ER 04:25
PROVIDERS: Emergency Medicine
DX: R33.9 Retention of urine, unspecified (principal)
CPT/HCPCS: 31860; A4314

== ENCOUNTER 2022-12-22 11:04 | Emergency (ER) | payer MEDICARE ==
[~2022-12-22] VITALS: Ht 170.2 cm; Wt 54.5 kg
[2022-12-22 11:09] VITALS: TEMP 97.6
[2022-12-22 12:09] LABS: COLLECTION METHOD CLEAN CATCH
[2022-12-22 12:26] LABS: SQUAMOUS EPITHELIAL None Seen /hpf (0-10); URINE BACTERIA Rare /hpf (NONE SEEN)
[2022-12-22 12:35] LABS: ALBUMIN 3.2 gm/dL (3.4-4.8); BILIRUBIN,TOTAL 0.8 mg/dL (0.2-1.2); CALCIUM 8.7 mg/dL (8.4-10.2); CREATININE, serum 0.88 mg/dL (0.72-1.25); POTASSIUM 5.1 mmol/L (3.5-4.5); TOTAL PROTEIN 7.7 gm/dL (6.2-8.1)
[2022-12-22 12:45] LABS: BASO % 0.6 % (0.0-2.0); EOS # 0.1 K/mm3 (0.0-0.7); EOS % 1.9 % (0.0-4.0); GRAN # 5.2 K/mm3 (1.4-6.5); GRAN % 77.4 % (42.2-75.2); HEMOGLOBIN 12.1 g/dl (13.5-18.0); LYMPH % 14.6 % (20.0-51.0); MEAN CELL VOLUME 88 fl (80.0-100.0); MEAN CORPUSCULAR HEMOGLOBIN 29 pg (27-31); MEAN CORPUSCULAR HGB CONC 34 g/dl (33.0-37.0); MEAN PLATELET VOLUME 9.5 fl (7.4-10.4); MONO # 0.4 K/mm3 (0.1-0.6); MONO % 5.2 % (1.7-9.3); PLATELET COUNT 258 K/mm3 (130-400); RED BLOOD COUNT 4.11 M/mm3 (4.20-5.60)
[2022-12-22 12:47] LABS: URINE APPEARANCE Hazy (CLEAR/HAZY); URINE BLOOD TRACE-INTACT (NEGATIVE); URINE COLOR Yellow (YELLOW); URINE GLUCOSE Negative (NEGATIVE); URINE KETONE Negative (NEGATIVE); URINE NITRATE Positive (NEGATIVE); URINE PROTEIN(semi-quant) 1+ (NEGATIVE); URINE UROBILINOGEN 0.2 E.U/dL (0.2-1.0)
[2022-12-22 13:01] LABS: HEMATOCRIT 36.1 % (42.0-52.0)
[2022-12-22] MEDS ORDERED: AMOXICILLIN 8751 TAB PO (13:09)
[2022-12-22 13:45] VITALS: BP 164/83; PULSE 64
== END 2022-12-22 13:55 | disposition home or self-care (01) ==
LOC: COL.ER 11:04
PROVIDERS: Physician Assistant
DX: N30.00 Acute cystitis without hematuria (principal); Z88.1 Allergy status to other antibiotic agents
CPT/HCPCS: J0696; J7030

== ENCOUNTER 2023-02-01 11:31 | Day surgery (SDC) | payer MEDICARE ==
[~2023-02-01] VITALS: Ht 170.2 cm; Wt 55.5 kg
[2023-02-01] MEDS ORDERED: LIBRAX CAPSULE1 CAP PO (16:42)
[2023-02-01] MEDS ORDERED: CARAFATE 1GM1 G PO (16:42)
[2023-02-01] MEDS ORDERED: PYRIDIUM 100MG100 MG PO (17:05)
[2023-02-01 17:10] VITALS: BP 159/91; PULSE 75; TEMP 98.2
[2023-02-01 18:10] VITALS: BP 180/69; PULSE 62; TEMP 97.4
[2023-02-01 18:25] VITALS: BP 178/22; PULSE 55
[2023-02-01 18:40] VITALS: BP 179/76; PULSE 57
[2023-02-01 18:55] VITALS: BP 186/76; PULSE 58
--- NOTE | 2023-02-01 20:00 | NUR ---
PATIENT IS A&O. NOTED ELEVATED B/P IN THE 170'S SYSTOLIC. PATIENT REPORTS HE DIDN'T TAKE ANY OF HIS HOME MEDS TODAY DUE TO SURGERY. PATIENT DISCHARGING HOME TONIGHT AND WANTS TO TAKE HIS OWN MEDS AT HOME. PATIENT ASKING ABOUT SOMEONE WHO CAME WITH HIM. NO FAMILY AT BEDSIDE. PATIENT'S FAMILY FOUND ON 2ND FLOOR STILL IN THE WAITING ROOM, NO ONE HAD NOTIFIED HER AFTER THE SURGERY AND SHE WAS PRETTY UPSET WELL THE PATIENT. ALL OTHER VSS. NO C/O PAIN OR NAUSEA. PATIENT WAS NOT ASSIGNED TO HIS ROOM SO HE COULD NOT ORDER FOOD BEFORE THE KITCHEN CLOSED. PATIENT GIVEN SNACKS ON FLOOR. TOLERATING LIQUIDS. IV FLUIDS INFUSING INTO LEFT WRIST IV. PATIENT STILL NEEDS TO VOID POST OP. HEAD TO TOE ASSESSMENT COMPLETE. CALL LIGHT IN REACH.
--- NOTE | 2023-02-01 21:00 | NUR ---
PATIENT MEET DISCHARGE CRITERIA. GAVE DISCHARGE INSTRUCTIONS, E-SCRIPT SENT, AND DISCUSSED F/U APT. ANSWERED QUESTIONS/CONCERNS. DC'D RIGHT FORARM IV AND COVERED SITE WITH GAUZE & TEGADERM. PATIENT IS DRESSED, PACKED AND ESCORTED OUT VIA WC TO PERSONAL VEHICLE WITH FAMILY.
[2023-02-01 21:55] VITALS: BP 178/78; PULSE 59
== END 2023-02-01 21:00 | disposition home or self-care (01) ==
LOC: SDCO 11:31 → SURG 20:20 → SDCO 21:00
DX: R39.12 Poor urinary stream (principal); R35.1 Nocturia; R35.0 Frequency of micturition; R39.11 Hesitancy of micturition; R39.15 Urgency of urination; K21.9 Gastro-esophageal reflux disease without esophagitis
CPT/HCPCS: OP; J1100; J2405; J2704; J3010; J7120; L8699